=== PATIENT | female | born 1945 | race Caucasian/White ===

== ENCOUNTER → 2017-03-01 | Outpatient (CLI) | payer OTHER | LOC: FIMAGING 13:47 | PROVIDERS: ATTEND Family Medicine | DX: Z12.39 Encounter for other screening for malignant neoplasm of breast (principal); N63 Unspecified lump in breast | CPT/HCPCS: 76641; G0204 ==

== ENCOUNTER → 2018-02-26 | Outpatient (CLI) | payer OTHER | LOC: FIMAGING 11:10 | PROVIDERS: ATTEND Family Medicine | DX: Z12.31 Encounter for screening mammogram for malignant neoplasm of breast (principal) ==

== ENCOUNTER → 2018-10-01 | Outpatient (CLI) | payer OTHER, BC | END | disposition home or self-care (01) | LOC: SUPIMAGING 17:14 | PROVIDERS: ATTEND Nurse Practitioner | DX: M79.89 Other specified soft tissue disorders (principal); S62.398D Other fracture of other metacarpal bone, subsequent encounter for fracture with routine healing | CPT/HCPCS: 73130-PN ==

== ENCOUNTER → 2018-11-25 | Outpatient (CLI) | payer OTHER, BC | LOC: SUPIMAGING 17:06 | PROVIDERS: ATTEND Family Medicine | DX: M79.641 Pain in right hand (principal) | CPT/HCPCS: 73130-PN ==